=== PATIENT | male | born 2000 | race Caucasian/White ===

== ENCOUNTER 2021-02-13 09:48 | Emergency (ER) | payer OTHER ==
[~2021-02-13] VITALS: Ht 182.8 cm; Wt 90.7 kg
[2021-02-13 10:18] VITALS: BP 131/81
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
[2021-02-13] MEDS ORDERED: TETANUS,DIPTH,PERTUSS P/F (BOOSTRIX) 0.5 ML VIAL IM ONE (10:30)
[2021-02-13] MEDS ORDERED: IBUPROFEN 600 MG (MOTRIN) TAB PO ONE (10:30)
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
[2021-02-13] MEDS ORDERED: CEPH500T PO (11:31)
== END 2021-02-13 11:36 | disposition home or self-care (01) ==
LOC: ER 09:52
DX: S91.031A Puncture wound without foreign body, right ankle, initial encounter (principal); Z23 Encounter for immunization; W20.8XXA Other cause of strike by thrown, projected or falling object, initial encounter
CPT/HCPCS: 73610; 90471; 90715